=== PATIENT | male | born 1975 | race Two or more races ===

== ENCOUNTER 2020-12-09 18:29 | Emergency (ER) | payer MEDICAID ==
[~2020-12-09] VITALS: Ht 154.9 cm; Wt 56.0 kg
[2020-12-09] MEDS ORDERED: LORAZEPAM 2MG/ML CPJ IV ONE (19:00)
[2020-12-09] MEDS ORDERED: SODIUM CHLORIDE 0.9% 1,000 ML IV ONE (19:00)
[2020-12-09 19:51] LABS: HEMATOCRIT. 35.6 % (42.0-52.0); HEMOGLOBIN. 12.3 g/dL (14.0-18.0); MEAN CORPUSCULAR HEMOGLOBIN 32.4 pg (28.0-32.0); MEAN CORPUSCULAR VOLUME 93.6 fL (80.0-94.0); PLATELET 76 x1000/uL (130-400); RED CELL DISTRIBUTION WIDTH 15.7 % (11.6-14.6)
[2020-12-09 19:58] LABS: CHLORIDE 105 mEq/L (98-107)
[2020-12-09] MEDS ORDERED: DIAZEPAM 5 MG/ML 2ML CPJ IV ONE (20:00)
[2020-12-09 20:18] LABS: ETHANOL BLOOD 467 mg/dL
[2020-12-09 20:37] LABS: PLATELET ESTIMATE DECREASED
[2020-12-09 22:39] LABS: *AMPHETAMINES SCREEN URINE NEGATIVE (NEGATIVE); *BARBITURATES SCREEN URINE NEGATIVE (NEGATIVE); *BENZODIAZEPINES SCREEN URINE NEGATIVE (NEGATIVE); *COCAINE SCREEN URINE NEGATIVE (NEGATIVE); METHADONE URINE SCREEN NEGATIVE (NEGATIVE)
[2020-12-09 22:40] LABS: CANNABINOID URINE SCREEN NEGATIVE (NEGATIVE); OPIATES URINE SCREEN NEGATIVE (NEGATIVE); PHENCYCLIDINE URINE SCREEN NEGATIVE (NEGATIVE)
[2020-12-10 00:20] VITALS: BP 115/72
== END 2020-12-10 00:36 | disposition home or self-care (01) ==
LOC: ER 18:29
DX: R07.89 Other chest pain (principal); I10 Essential (primary) hypertension
CPT/HCPCS: 36415; 71045; 80053; 80305; 80320; 83880; 84484; 85025; 93005; 96361; 96374; 96375; 99285; J2060; J3360; J7030; Z7610; G0480

== ENCOUNTER 2021-08-05 12:36 | Emergency (ER) | payer MEDICAID ==
[~2021-08-05] VITALS: Ht 160 cm; Wt 70.0 kg
[2021-08-05] MEDS ORDERED: KETOROLAC 30MG/ML VIAL IV STA ×2 (13:41→16:23)
[2021-08-05] MEDS ORDERED: TETANUS, DIPHTHERIA, PERTUSSIS VAC/PF 0.5ML (>10YR OLD) IM ONE (13:45)
[2021-08-05] MEDS ORDERED: LIDOCAINE HCL/PF 1% 2ML VIAL INFIL ONE (14:00)
[2021-08-05] MEDS ORDERED: LIDOCAINE HCL 1% 20ML VIAL (Pyxis) INJ INFIL NR (14:15)
[2021-08-05] MEDS ORDERED: SODIUM CHLORIDE 0.9% 1,000 ML IV ONE (16:30)
[2021-08-05] MEDS ORDERED: LORAZEPAM 2MG/ML CPJ IV ONE (17:00)
[2021-08-05] MEDS ORDERED: LORA-250 MT (17:39)
[2021-08-05] MEDS ORDERED: NAPR375T5 MT (17:39)
[2021-08-05 18:30] VITALS: BP 110/65
== END 2021-08-05 18:54 | disposition home or self-care (01) ==
LOC: ER 13:23
DX: S02.92XA Unspecified fracture of facial bones, initial encounter for closed fracture (principal); S06.9X0A Unspecified intracranial injury without loss of consciousness, initial encounter; F10.10 Alcohol abuse, uncomplicated; I10 Essential (primary) hypertension; Y04.0XXA Assault by unarmed brawl or fight, initial encounter; Y93.89 Activity, other specified; Y92.89 Other specified places as the place of occurrence of the external cause; Y99.8 Other external cause status; Y90.9 Presence of alcohol in blood, level not specified
CPT/HCPCS: 12002; 70450; 70486; 90471; 90715; 96361; 96374; 96375; 99284; J1885; J2060; J3490; J7030

== ENCOUNTER 2021-08-16 09:23 | Emergency (ER) | payer MEDICAID ==
[~2021-08-16] VITALS: Ht 144.8 cm; Wt 59.0 kg
[~2021-08-16 09:23] MED LIST: NAPR375T5 MT
[2021-08-16 09:31] VITALS: BP 149/99
[2021-08-16] MEDS ORDERED: ACETAMINOPHEN 325MG TABLET PO ONE (09:45)
== END 2021-08-16 09:48 | disposition home or self-care (01) ==
LOC: ER 09:23
DX: Z48.02 Encounter for removal of sutures (principal); I10 Essential (primary) hypertension
CPT/HCPCS: 99282; Z7610

== ENCOUNTER 2022-03-04 08:52 | Emergency (ER) | payer MEDICAID ==
[~2022-03-04] VITALS: Ht 154.9 cm; Wt 59.0 kg
[2022-03-04 09:02] VITALS: BP 141/92
[2022-03-04] MEDS ORDERED: ACETAMINOPHEN 650MG SUPP PR STA (09:54)
[2022-03-04] MEDS ORDERED: ACETAMINOPHEN 325MG TABLET PO ONE (11:15)
[2022-03-04 11:27] LABS: BASOPHILS % 2.7 % (0.0-2.0); HEMATOCRIT. 33.8 % (42.0-52.0); HEMOGLOBIN. 10.5 g/dL (14.0-18.0); LYMPHOCYTES % 22.5 % (20.0-50.0); MEAN CORPUSCULAR HEMOGLOBIN 27.1 pg (28.0-32.0); MEAN CORPUSCULAR VOLUME 87.3 fL (80.0-94.0); MEAN PLATELET VOLUME 8.9 fl (7.4-10.4); MONOCYTES % 12.1 % (2.0-8.0); NEUTROPHILS % 61.7 % (40.0-76.0); PLATELET 95 x1000/uL (130-400); RED BLOOD CELL COUNT 3.88 mill/uL (4.7-6.1); RED CELL DISTRIBUTION WIDTH 17.6 % (11.6-14.6)
[2022-03-04 11:38] LABS: CHLORIDE 102 mEq/L (98-107)
[2022-03-04] MEDS ORDERED: IBUP-2029 MT (13:41)
[2022-03-04] MEDS ORDERED: AMOX1TAB16 MT (13:41)
[2022-03-04] MEDS ORDERED: KETOROLAC 60MG/2ML VIAL IM ONE (13:45)
== END 2022-03-04 14:12 | disposition home or self-care (01) ==
LOC: ER 10:01
DX: L97.519 Non-pressure chronic ulcer of other part of right foot with unspecified severity (principal); L97.511 Non-pressure chronic ulcer of other part of right foot limited to breakdown of skin; L03.115 Cellulitis of right lower limb; F41.9 Anxiety disorder, unspecified; I10 Essential (primary) hypertension; Z98.890 Other specified postprocedural states
CPT/HCPCS: 36415; 73630; 80053; 83605; 85025; 99284

== ENCOUNTER 2022-04-12 08:45 | Emergency (ER) | payer MEDICAID ==
[~2022-04-12] VITALS: Ht 154.9 cm; Wt 59.0 kg
[~2022-04-12 08:45] MED LIST changes: +AMOX1TAB16 MT; +IBUP-2029 MT
[2022-04-12 08:59] VITALS: BP 163/98
== END 2022-04-12 09:34 | disposition home or self-care (01) ==
LOC: ER 08:45
DX: R04.0 Epistaxis (principal); I10 Essential (primary) hypertension; F41.9 Anxiety disorder, unspecified; F17.210 Nicotine dependence, cigarettes, uncomplicated
CPT/HCPCS: 99281

== ENCOUNTER 2022-07-11 09:44 | Emergency (ER) | payer MEDICAID ==
[~2022-07-11] VITALS: Ht 154.9 cm; Wt 60.0 kg
[2022-07-11 09:52] VITALS: BP 135/96
== END 2022-07-11 13:45 | disposition left against medical advice (07) ==
LOC: ER 09:44
DX: Z53.21 Procedure and treatment not carried out due to patient leaving prior to being seen by health care provider (principal)

== ENCOUNTER 2022-07-12 08:19 | Emergency (ER) | payer MEDICAID ==
[~2022-07-12] VITALS: Ht 154.9 cm; Wt 58.0 kg
[2022-07-12 08:29] VITALS: BP 156/96
[2022-07-12 10:51] LABS: HEMATOCRIT. 31.2 % (42.0-52.0); MEAN CORPUSCULAR HEMOGLOBIN 27.1 pg (28.0-32.0); MEAN CORPUSCULAR VOLUME 84.4 fL (80.0-94.0); MEAN PLATELET VOLUME 8.7 fl (7.4-10.4); PLATELET 137 x1000/uL (130-400); RED BLOOD CELL COUNT 3.69 mill/uL (4.7-6.1); RED CELL DISTRIBUTION WIDTH 18.3 % (11.6-14.6)
[2022-07-12 10:54] LABS: CHLORIDE 99 mEq/L (98-107)
[2022-07-12 11:37] LABS: ETHANOL BLOOD 135 mg/dL
[2022-07-12 12:03] LABS: NUCLEATED RED BLOOD CELLS 1 /100 WBC
[2022-07-12 12:04] LABS: PLATELET ESTIMATE NORMAL
[2022-07-13] MEDS ORDERED: ONDA4TAB50 MT (11:13)
[2022-07-13] MEDS ORDERED: L25 MT (11:13)
[2022-07-13] MEDS ORDERED: CIPR-263 MT (11:13)
== END 2022-07-12 15:23 | disposition left against medical advice (07) ==
LOC: ER 08:19
DX: R10.9 Unspecified abdominal pain (principal); F41.9 Anxiety disorder, unspecified; I10 Essential (primary) hypertension; F10.20 Alcohol dependence, uncomplicated; Y90.6 Blood alcohol level of 120-199 mg/100 ml; Z98.890 Other specified postprocedural states
CPT/HCPCS: 36415; 80053; 80320; 85025; 99283; G0480

== ENCOUNTER 2022-07-13 09:18 | Emergency (ER) | payer MEDICAID ==
[~2022-07-13] VITALS: Ht 165.1 cm; Wt 60.0 kg
[2022-07-13 10:28] LABS: HEMATOCRIT. 34.2 % (42.0-52.0); HEMOGLOBIN. 10.7 g/dL (14.0-18.0); MEAN CORPUSCULAR HEMOGLOBIN 27.9 pg (28.0-32.0); MEAN CORPUSCULAR VOLUME 89.2 fL (80.0-94.0); MEAN PLATELET VOLUME 8.6 fl (7.4-10.4); PLATELET 165 x1000/uL (130-400); RED BLOOD CELL COUNT 3.84 mill/uL (4.7-6.1); RED CELL DISTRIBUTION WIDTH 18.6 % (11.6-14.6)
[2022-07-13 10:31] LABS: CHLORIDE 102 mEq/L (98-107)
[2022-07-13 10:39] LABS: ETHANOL BLOOD 254 mg/dL
[2022-07-13 10:58] LABS: PLATELET ESTIMATE NORMAL
[2022-07-13] MEDS ORDERED: CIPR-263 MT (11:13)
[2022-07-13] MEDS ORDERED: L25 MT (11:13)
[2022-07-13] MEDS ORDERED: ONDA4TAB50 MT (11:13)
[2022-07-13] MEDS ORDERED: POTASSIUM CHLORIDE 20MEQ TABLET SR PO ONE (11:15)
[2022-07-13 11:49] VITALS: BP 142/78
== END 2022-07-13 11:45 | disposition home or self-care (01) ==
LOC: ER 09:18
DX: K52.9 Noninfective gastroenteritis and colitis, unspecified (principal); F10.229 Alcohol dependence with intoxication, unspecified; Y90.8 Blood alcohol level of 240 mg/100 ml or more; E87.6 Hypokalemia; F41.9 Anxiety disorder, unspecified; I10 Essential (primary) hypertension
CPT/HCPCS: 36415; 76705; 80053; 80320; 85025; 87015; 87045; 87427; 87449; 99284; G0480

== ENCOUNTER 2022-08-18 07:52 | Emergency (ER) | payer MEDICAID ==
[~2022-08-18] VITALS: Ht 152.4 cm; Wt 61.0 kg
[~2022-08-18 07:52] MED LIST changes: +CIPR-263 MT; +L25 MT; +ONDA4TAB50 MT
[2022-08-18 07:56] VITALS: BP 158/114
[2022-08-18] MEDS ORDERED: ACETAMINOPHEN 325MG TABLET PO ONE (08:15)
[2022-08-18] MEDS ORDERED: KETOROLAC 60MG/2ML VIAL IM ONE (10:15)
[2022-08-18] MEDS ORDERED: METH-773 MT (10:17)
[2022-08-18] MEDS ORDERED: IBUP-2029 MT (10:17)
== END 2022-08-18 10:26 | disposition home or self-care (01) ==
LOC: ER 07:52
DX: M54.12 Radiculopathy, cervical region (principal); I10 Essential (primary) hypertension
CPT/HCPCS: 72125; 96372; 99285; J1885

== ENCOUNTER 2022-11-28 09:05 | Emergency (ER) | payer MEDICAID ==
[~2022-11-28] VITALS: Ht 162.6 cm; Wt 59.0 kg
[~2022-11-28 09:05] MED LIST changes: +METH-773 MT
[2022-11-28] MEDS ORDERED: ONDANSETRON 4MG ODT PO ONE (09:30)
[2022-11-28 10:03] LABS: CHLORIDE 102 mEq/L (98-107)
[2022-11-28 10:06] LABS: BASOPHILS % 3.2 % (0.0-2.0); EOSINOPHILS % 0.8 % (0.0-5.0); HEMATOCRIT. 30.6 % (42.0-52.0); HEMOGLOBIN. 9.7 g/dL (14.0-18.0); MEAN CORPUSCULAR HEMOGLOBIN 25.8 pg (28.0-32.0); MEAN CORPUSCULAR VOLUME 80.9 fL (80.0-94.0); MEAN PLATELET VOLUME 8.8 fl (7.4-10.4); MONOCYTES % 11.2 % (2.0-8.0); NEUTROPHILS % 59.8 % (40.0-76.0); PLATELET 75 x1000/uL (130-400); RED BLOOD CELL COUNT 3.78 mill/uL (4.7-6.1); RED CELL DISTRIBUTION WIDTH 18.1 % (11.6-14.6)
[2022-11-28] MEDS ORDERED: L25 MT (11:13)
[2022-11-28] MEDS ORDERED: PERM60CR4 TP (11:13)
[2022-11-28 11:23] VITALS: BP 136/83
== END 2022-11-28 11:26 | disposition home or self-care (01) ==
LOC: ER 09:05
DX: R21 Rash and other nonspecific skin eruption (principal); I10 Essential (primary) hypertension; Z79.899 Other long term (current) drug therapy; Z98.890 Other specified postprocedural states
CPT/HCPCS: 36415; 80053; 85025; 99283

== ENCOUNTER 2024-03-06 10:37 | Emergency (ER) | payer MEDICAID ==
[~2024-03-06] VITALS: Ht 144.8 cm; Wt 62.5 kg
[~2024-03-06 10:37] MED LIST changes: -AMOX1TAB16 MT; +CHLO25CA10 PO; -CIPR-263 MT; +FOLI-43 PO; -IBUP-2029 MT; -L25 MT; -METH-773 MT; -NAPR375T5 MT; -ONDA4TAB50 MT; +THIA100T72 PO
[2024-03-06 11:01] VITALS: O2SAT 99
[2024-03-06 12:06] LABS: HEMATOCRIT. 28.2 % (42.0-52.0); HEMOGLOBIN. 8.3 g/dL (14.0-18.0); MEAN CORPUSCULAR HEMOGLOBIN 22.4 pg (28.0-32.0); MEAN CORPUSCULAR HGB CONC 29.5 g/dL (31.0-37.0); MEAN CORPUSCULAR VOLUME 75.8 fL (80.0-94.0); MEAN PLATELET VOLUME 8.5 fl (7.4-10.4); PLATELET 75 x1000/uL (130-400); RED BLOOD CELL COUNT 3.72 mill/uL (4.7-6.1); RED CELL DISTRIBUTION WIDTH 20.6 % (11.6-14.6); WHITE BLOOD COUNT 5.2 x1000/uL (4.5-11.0)
[2024-03-06] MEDS: CHLORDIAZEPOXIDE 25MG CAPSULE PO ONE (12:07)
[2024-03-06 12:08] VITALS: TEMP 98.4
[2024-03-06] MEDS: ACETAMINOPHEN 325MG TABLET PO ONE (12:08)
[2024-03-06] MEDS: ONDANSETRON 4MG ODT PO ONE (12:08)
[2024-03-06 12:18] LABS: CHLORIDE 101 mEq/L (98-107); POTASSIUM 3.6 mEq/L (3.5-5.1); SODIUM 136 mEq/L (136-145)
[2024-03-06 12:20] LABS: CALCIUM 8.6 mg/dL (8.7-10.4); CARBON DIOXIDE 27 mEq/L (21-32)
[2024-03-06 12:21] LABS: DIFFERENTIAL COMMENT 1
[2024-03-06 12:25] LABS: CREATININE 0.6 mg/dL (0.6-1.3); GLUCOSE 118 mg/dL (70-105)
[2024-03-06 12:27] LABS: ALANINE AMINOTRANSFERASE 41 IU/L (10-49); ALBUMIN 4.1 g/dL (3.2-4.8); ASPARTATE AMINOTRANSFERASE 124 IU/L (<34); BILIRUBIN DIRECT 0.7 mg/dL (<=3.0); BILIRUBIN TOTAL 1.4 mg/dL (0.1-1.0); PROTEIN TOTAL 8.6 g/dL (6.0-8.3)
[2024-03-06 12:32] LABS: UREA NITROGEN BLOOD < 5 mg/dL (9-23)
[2024-03-06 12:53] LABS: NUCLEATED RED BLOOD CELLS 1 /100 WBC
[2024-03-06 12:54] LABS: ANISOCYTOSIS 3+; PLATELET ESTIMATE DECREASED
[2024-03-06 14:40] LABS: CLARITY URINE CLEAR (CLEAR); COLOR URINE YELLOW (YELLOW); GLUCOSE URINE NEGATIVE (NEGATIVE); KETONES URINE NEGATIVE (NEGATIVE); LEUKOCYTE ESTERASE URINE NEGATIVE (NEGATIVE); NITRITE URINE NEGATIVE (NEGATIVE); OCCULT BLOOD URINE NEGATIVE (NEGATIVE); PROTEIN URINE 2+ (NEGATIVE); SPECIFIC GRAVITY URINE 1.004 (1.005-1.030); UROBILINOGEN URINE 0.2 E.U./dL (0.2-1.0)
[2024-03-06 14:55] VITALS: BP 145/84; PULSE 82; RESP 16; O2SAT 100
[2024-03-06 14:58] LABS: *AMPHETAMINES SCREEN URINE NEGATIVE (NEGATIVE); *BARBITURATES SCREEN URINE NEGATIVE (NEGATIVE); *BENZODIAZEPINES SCREEN URINE NEGATIVE (NEGATIVE); *COCAINE SCREEN URINE NEGATIVE (NEGATIVE); CANNABINOID URINE SCREEN NEGATIVE (NEGATIVE); ECSTASY MDMA SCREEN URINE NEGATIVE (NEGATIVE); METHADONE URINE SCREEN NEGATIVE (NEGATIVE); OPIATES URINE SCREEN NEGATIVE (NEGATIVE); PHENCYCLIDINE URINE SCREEN NEGATIVE (NEGATIVE)
[2024-03-06 15:38] LABS: BACTERIA URINE NONE SEEN; RBC URINE 0-2 /hpf (0-2); SQUAMOUS EPITHELIAL CELL URINE NONE SEEN /lpf (RARE/1+); WBC URINE 0-2 /hpf (0-2)
== END 2024-03-06 14:58 | disposition home or self-care (01) ==
LOC: ER 10:37
DX: K29.20 Alcoholic gastritis without bleeding (principal); K70.9 Alcoholic liver disease, unspecified; I10 Essential (primary) hypertension; Z98.890 Other specified postprocedural states; Y90.8 Blood alcohol level of 240 mg/100 ml or more
CPT/HCPCS: 80076; 80305; 80048; 81003; 80320; 83690; 85025; 36415; 74176; 99284; Q0162; G0480